=== PATIENT | female | born 1980 | race Caucasian/White ===

== ENCOUNTER 2019-09-02 14:12 | Outpatient (CLI) | payer OTHER, SELFPAY ==
--- NOTE | ~2019-09-02 | XR_ITS ---
EXAMINATION: XR chest 2V 09/02/2019 14:34 INDICATION: Cough with wheezing PROCEDURE: 2 view chest COMPARISON: 08/20/2012 FINDINGS: The lungs are clear. The cardiomediastinal silhouette is within normal limits. There are no pleural effusions. There is no pneumothorax suspected. IMPRESSION: 1: NO ACUTE CARDIOPULMONARY DISEASE. Reviewed, dictated and finalized at location A.
== END 2019-09-02 14:13 | disposition home or self-care (01) ==
PROVIDERS: PCP Internal Medicine; Visit Provider Clinical Nurse Specialist
DX: R05 Cough (principal); R06.2 Wheezing
CPT/HCPCS: 71046

== ENCOUNTER 2019-09-14 10:32 | Outpatient (CLI) | payer OTHER, SELFPAY ==
--- NOTE | 2019-09-15 13:01 | P.PCNPFT_ITS ---
PFT Interpretation PFT Interpretation: DOS: 09/14/2019 REQUESTING: Dr Adonis Pichardo REASON FOR TESTING: Shortness of breath PULMONARY FUNCTION TESTS results are reproducible. Spirometry: FEV1 is 82%, normal. FVC 89%, normal. FEV1% is 71%, normal. FEF25- 75% is 46%, decreased. There is no improvement after bronchodilator admi nistration. Lung volumes: TLC 108% normal.. Increased residual volume 137% consistent with mild air trapping. Airway resistance increased 193%. Diffusion: DLCO is 97%, normal. Flow volume loop: Mild coving of the expiratory limb. IMPRESSION: Obstructive process is present with a small airways pattern, mild air trapping and mild increase in airway resistance. No response to bronchodilator. Lack of response to bronchodilators should not preclude use if clinically indicated Manjula Christopher MD
== END 2019-09-14 10:33 | disposition home or self-care (01) ==
LOC: ANHPFT 10:33
PROVIDERS: PCP Internal Medicine; Visit Provider Internal Medicine
DX: R06.2 Wheezing (principal); R94.2 Abnormal results of pulmonary function studies
CPT/HCPCS: 94060; 94726; 94729

== ENCOUNTER 2020-11-09 08:04 | Outpatient (CLI) | payer BC, SELFPAY ==
--- NOTE | ~2020-11-09 | US_ITS ---
EXAMINATION: US right upper quadrant DATE: 11/09/2020 08:31 INDICATION: Gastroesophageal reflux disease TECHNIQUE: Multiple grayscale and Doppler ultrasound images of the abdomen were obtained. COMPARISON: 02/16/2011 FINDINGS: The head, body, and tail of the pancreas are normal. Cysts of the liver measure up to 1.6 c m The liver is otherwise normal with normal echogenicity and echotexture. No surface nodularity. Norm al hepatopetal flow in the main portal vein. The gallbladder is normal with no abnormal wall thickeni ng, pericholecystic fluid or stones. The normal common bile duct measures 3 mm. There was no sonograp hic Rodney sign. IMPRESSION: 1. Normal sonographic study of the gallbladder. Reviewed, dictated and finalized at location A.
== END 2020-11-09 08:05 | disposition home or self-care (01) ==
PROVIDERS: PCP Internal Medicine; Visit Provider Clinical Nurse Specialist
DX: K21.9 Gastro-esophageal reflux disease without esophagitis (principal); K76.89 Other specified diseases of liver
CPT/HCPCS: 76705

== ENCOUNTER → 2021-01-25 03:49 | Outpatient (CLI) | payer BC, SELFPAY ==
[2021-01-26 17:41] LABS: SARS-CoV-2 RNA PCR Negative
== END ==
PROVIDERS: PCP Internal Medicine; Visit Provider Internal Medicine
DX: R50.9 Fever, unspecified (principal); Z20.822 Contact with and (suspected) exposure to COVID-19
CPT/HCPCS: C9803; U0003; U0005

== ENCOUNTER 2021-01-25 09:31 | Outpatient (CLI) | payer BC, SELFPAY ==
[2021-01-25 11:17] LABS: Influenza Control Positive
== END 2021-01-25 09:32 | disposition home or self-care (01) ==
LOC: ANHLAB 09:34
PROVIDERS: PCP Internal Medicine; Visit Provider Internal Medicine
DX: R50.9 Fever, unspecified (principal)
CPT/HCPCS: 87804; C9803; U0003; U0005

== ENCOUNTER 2021-09-14 13:22 | Emergency (ER) | payer BC, SELFPAY ==
[2021-09-14] VITALS (24 sets, daily range): BP systolic 122–155; BP diastolic 69–129; PULSE 82–99; RESP 13–29; TEMP 36.6; O2SAT 95–100
--- NOTE | ~2021-09-14 | XR_ITS ---
EXAMINATION: XR chest 2V 09/14/2021 14:35 INDICATION: Shortness of breath. Chest pain. PROCEDURE: 2 view chest COMPARISON: 09/02/2019 FINDINGS: The lungs are clear. The cardiomediastinal silhouette is within normal limits. There are no pleural effusions. There is no pneumothorax suspected. IMPRESSION: 1: NO ACUTE CARDIOPULMONARY DISEASE. Reviewed, dictated and finalized at location B.
--- NOTE | 2021-09-14 13:44 | ECG_ITS ---
Measurements Intervals [place] Rate: 93 P: 74 LA: 134 QRS: 60 QRSD: 85 T: 15 QT: 365 QTc: 454 Interpretive Statements SINUS RHYTHM POSSIBLE LEFT ATRIAL ENLARGEMENT [-0.1mV P WAVE IN V1/V2] NONSPECIFIC T-WAVE ABNORMALITY NO PREVIOUS ECG AVAILABLE FOR COMPARISON Electronically Signed On 09-14-2021 20:37:24 CDT by Mayela Alvarado M.D.
[2021-09-14 14:21] LABS: Basophils Percent Auto 0.9 % (0.2-1.2); Eosinophils Absolute Auto 0.1 K/mm3 (0-0.3); Eosinophils Percent Auto 1.7 % (0-4.4); Hematocrit 34.2 % (37.0-47.0); Hemoglobin 10.5 g/dL (12.0-15.0); Immature Granulocyte Absolute 0.01 K/mm3 (0.00-0.031); Immature Granulocyte Percent A 0.3 % (0-0.5); Lymphocytes Absolute Auto 0.57 K/mm3 (0.9-3.2); Lymphocytes Percent Auto 16.2 % (18.3-44.2); Mean Corpuscular HGB Conc 30.7 g/dl (32-36); Mean Corpuscular Hemoglobin 25.1 pg (26-34); Mean Corpuscular Volume 81.6 fl (80-100); Mean Platelet Volume 9.1 fl (7.4-10.4); Monocytes Absolute Auto 0.3 K/mm3 (0.1-0.6); Monocytes Percent Auto 7.1 % (2.6-8.5); Neutrophils Absolute Auto 2.6 K/mm3 (1.3-6.7); Neutrophils Percent Auto 73.8 % (45.5-73.1); Platelet Count Result 117 k/mm3 (150-375); Red Blood Count 4.19 M/mm3 (4.2-5.4); Red Cell Distribution Width 17.9 % (11.5-14.5); White Blood Count 3.5 K/mm3 (4.5-10.0)
--- NOTE | 2021-09-14 14:40 | ED.ALCOHOL ---
HPI - Alcohol General Chief Complaint: Alcohol Stated Complaint: chest pain, anxiety Time Seen by Provider: 09/14/21 14:09 History of Present Illness HPI narrative: Pt admits to drinking 1/2 bottle of vodka a day for last moth or 8 [employer]. Pt has history of alcohol abuse and has been through rehab in the past and would like help. Pt drank this morning but feels like she is shaky and withdrawing. Pt has never had seizures. Pt also has had CP since 0700 yesterday. Pt says CP is constant since yesterday and waxes and wanes in severity. Related Data Home Medications Medication Instructions Recorded Confirmed esomeprazole magnesium 20 mg 20 mg PO DAILY 06/19/21 06/19/21 capsule,delayed release (Nexium) Allergies Allergy/AdvReac Type Severity Reaction Status Date / Time ciprofloxacin Allergy Mild NAUSEA Verified 05/28/19 09:24 Sulfa (Sulfonamide Allergy Mild Vomiting Verified 05/28/19 09:24 Antibiotics) Review of Systems Review of Systems: All systems reviewed & are unremarkable except as noted in HPI and below PMFSH Past Medical History Medical History Alcohol use disorder, moderate, dependence Anxiety and depression Chiari malformation type I High cholesterol Screening for metabolic disorder Family History Family History Father Diabetes mellitus Mother Hypertension Breast cancer Social History Social History Smoking status: Never smoker Alcohol intake: former Exam Const: General: healthy appearing Nutritional Appearance: well nourished Orientation/consciousness: patient oriented x3 Limitations: no limitations Eyes: Conjunctivae: conjunctivae normal EOM: EOMs intact bilaterally Neck: Neck: normal visual inspection Chest: Chest palpation & inspection: normal inspection of the chest Resp: Effort & Inspection: normal respiratory effort Auscultation: clear to auscultation bilaterally Cardio: Rate: regular rate Rhythm: regular rhythm GI: GI Palp: Yes Soft to palpation Auscultation: normal bowel sounds Skin: General skin exam: normal color Rashes: no rashes Wounds: no wounds Neuro: General: patient oriented x3 Cranial nerves: Yes Nystagmus not present Speech: normal speech Extrem: General: normal to inspection and no clubbing, cyanosis or edema Psych: Mental Status: mental status grossly normal Affect: Anxious affect present (shaking slightly) Attitude: cooperative Course Vital Signs Vital signs: Vital Signs Temperature 97.8 F 09/14/21 13:41 Pulse Rate 94 09/14/21 13:41 Respiratory Rate 18 09/14/21 13:41 Blood Pressure 149/86 H 09/14/21 13:41 Pulse Oximetry 99 09/14/21 13:41 Oxygen Delivery Room Air 09/14/21 13:41 Temperature 97.8 F 09/14/21 13:41 Pulse Rate 99 09/14/21 20:06 Respiratory Rate 20 09/14/21 20:06 Blood Pressure 150/129 H 09/14/21 20:06 Pulse Oximetry 100 09/14/21 20:06 Oxygen Delivery Room Air 09/14/21 13:41 MDM - Alcohol Lab Data Result diagrams: 09/14/21 14:16 09/14/21 14:16 Labs: Lab Results 09/14/21 09/14/21 09/14/21 Range/Units 06:09 06:09 14:16 WBC 3.5 L (4.5-10.0) K/mm3 RBC 4.19 L (4.2-5.4) M/mm3 Hgb 10.5 L (12.0-15.0) g/dL Hct 34.2 L (37.0-47.0) % MCV 81.6 (80-100) fl MCH 25.1 L (26-34) pg MCHC 30.7 L (32-36) g/dl RDW 17.9 H (11.5-14.5) % Plt Count 117 L (150-375) k/mm3 MPV 9.1 (7.4-10.4) fl Immature Gran % (Auto) 0.3 (0-0.5) % Neut % (Auto) 73.8 H (45.5-73.1) % Lymph % (Auto) 16.2 L (18.3-44.2) % [place] % (Auto) 7.1 (2.6-8.5) % Eos % (Auto) 1.7 (0-4.4) % Baso % (Auto) 0.9 (0.2-1.2) % Lymph # (Auto) 0.57 L (0.9-3.2) K/mm3 [place] # (Auto) 0.3 (0.1-0.6) K/mm3 Eos # (Auto) 0.1 (0-0.3) K/mm3 Baso #
[2021-09-14 14:41] LABS: Alanine Aminotransferase 185 U/L (6-35); Albumin Level 4.5 g/dL (3.5-5.1); Alkaline Phosphatase 121 U/L (38-126); Anion Gap 13 mmol/L (8-16); Aspartate Amino Transferase 396 U/L (14-36); Bilirubin,Total 0.2 mg/dL (0.2-1.3); Blood Urea Nitrogen 7 mg/dL (7-17); Calcium 8.2 mg/dL (8.4-10.2); Carbon Dioxide 23 mmol/L (22-30); Chloride 103 mmol/L (98-107); Estimated CRCL calculation 86 ml/min; Estimated Glomerular Filt Rate > 60; Glucose 95 mg/dL (65-110); Potassium 3.6 mmol/L (3.4-5.0); Sodium 139 mmol/L (137-145)
[2021-09-14] MEDS: LORazepam INJ (*CRX) 2 MG/ML VIAL 1 MG IV PUSH ×3 (15:34→19:55)
[2021-09-14] MEDS: THIAMINE HCL INJ 100 MG, FOLIC ACID INJ 1 MG, MULTIVITAMINS-12 INJ VIAL 1 5 ML, MULTIVI... IV CONT (15:46)
[2021-09-14 15:48] LABS: Ethanol 103 mg/dL (<10)
[2021-09-14 15:56] LABS: Troponin I < 0.012 ng/mL (0.000-0.034)
[2021-09-14 18:02] LABS: Ethanol 25 mg/dL (<10)
== END 2021-09-14 20:05 | disposition home or self-care (01) ==
PROVIDERS: Emergency Medicine; Emergency Provider Emergency Medicine; PCP Internal Medicine
DX: F10.10 Alcohol abuse, uncomplicated (principal); Y90.9 Presence of alcohol in blood, level not specified
CPT/HCPCS: 36415; 71046; 80053; 80307; 84484; 85025; 93005; 96365; 96366; 96375; 96376; 99284; J2060; J3411; J3475; J7030

== ENCOUNTER 2022-02-10 17:18 | Inpatient (IN) | payer BC, SELFPAY ==
[2022-02-10] VITALS (17 sets, daily range): BP systolic 124–146; BP diastolic 63–85; PULSE 83–110; RESP 16–21; TEMP 36.2–36.7; O2SAT 94–100
[2022-02-10 17:45] LABS: Basophils Percent Auto 0.7 % (0.2-1.2); Eosinophils Absolute Auto 0.1 K/mm3 (0-0.3); Eosinophils Percent Auto 2.1 % (0-4.4); Hematocrit 35.9 % (37.0-47.0); Immature Granulocyte Absolute 0.01 K/mm3 (0.00-0.031); Immature Granulocyte Percent A 0.2 % (0-0.5); Lymphocytes Absolute Auto 1.37 K/mm3 (0.9-3.2); Lymphocytes Percent Auto 23.9 % (18.3-44.2); Mean Corpuscular HGB Conc 30.6 g/dl (32-36); Mean Corpuscular Hemoglobin 23.3 pg (26-34); Mean Corpuscular Volume 76.1 fl (80-100); Mean Platelet Volume 8.3 fl (7.4-10.4); Monocytes Absolute Auto 0.3 K/mm3 (0.1-0.6); Monocytes Percent Auto 5.2 % (2.6-8.5); Neutrophils Absolute Auto 3.9 K/mm3 (1.3-6.7); Neutrophils Percent Auto 67.9 % (45.5-73.1); Platelet Count Result 325 k/mm3 (150-375); Red Blood Count 4.72 M/mm3 (4.2-5.4); Red Cell Distribution Width 17.5 % (11.5-14.5); White Blood Count 5.7 K/mm3 (4.5-10.0)
[2022-02-10 17:56] LABS: Ethanol 267 mg/dL (<10)
[2022-02-10 18:04] LABS: Alanine Aminotransferase 29 U/L (6-35); Albumin Level 4.8 g/dL (3.5-5.1); Alkaline Phosphatase 82 U/L (38-126); Anion Gap 16 mmol/L (8-16); Aspartate Amino Transferase 40 U/L (14-36); Bilirubin,Total 0.4 mg/dL (0.2-1.3); Blood Urea Nitrogen 9 mg/dL (7-17); Calcium 8.4 mg/dL (8.4-10.2); Carbon Dioxide 25 mmol/L (22-30); Chloride 104 mmol/L (98-107); Estimated CRCL calculation 96 ml/min; Estimated Glomerular Filt Rate > 60; Glucose 132 mg/dL (65-110); Potassium 3.5 mmol/L (3.4-5.0); Sodium 145 mmol/L (137-145)
--- NOTE | 2022-02-10 18:26 | ED.ALCOHOL ---
HPI - Alcohol General Chief Complaint: Alcohol Stated Complaint: ALCOHOL WITHDRAWALS Time Seen by Provider: 02/10/22 18:14 History of Present Illness HPI narrative: Patient is a 41-year-old female with a history of depression, anxiety, alcohol use disorder presenting for alcohol withdrawal. According to the patient's brother the patient was in a rehab facility several weeks ago but then signed her self out after several days. She then went to a boyfriend's house and has been drinking every day for at least the last 2 weeks. He states that at least 8 empty bottles of vodka were found at the boyfriend's house. She was then kicked out of the boyfriend's house today as he is trying to maintain his sobriety. Patient's brother called her primary care provider who agreed with bringing her in for admission for alcohol detox. Multiple family members are calling rehab facilities in the area to find availability. Currently, the patient complains of a mild headache but otherwise denies chest pain, shortness of breath, cough, abdominal pain, nausea or vomiting, diarrhea. States her last drink was approximately 3 hours ago. Related Data Home Medications Medication Instructions Recorded Confirmed esomeprazole magnesium 20 mg 20 mg PO DAILY 06/19/21 02/10/22 capsule,delayed release (Nexium) gabapentin 300 mg capsule 600 mg PO TID 02/10/22 02/10/22 trazodone 50 mg tablet 50 mg PO HS 02/10/22 02/10/22 Allergies Allergy/AdvReac Type Severity Reaction Status Date / Time ciprofloxacin Allergy Mild NAUSEA Verified 02/10/22 18:07 Sulfa (Sulfonamide Allergy Mild Vomiting Verified 02/10/22 18:07 Antibiotics) Review of Systems Review of Systems: All systems reviewed & are unremarkable except as noted in HPI and below PMFSH Past Medical History Medical History (Updated 02/11/22 @ 20:44 by Holly Cruz MD) Alcohol use disorder, moderate, dependence Anxiety and depression Chiari malformation type I High cholesterol Screening for metabolic disorder Family History Family History Father Diabetes mellitus Mother Hypertension Breast cancer Social History Social History Smoking status: Current every day smoker Tobacco type: e-cigarettes/vaping Alcohol intake: current Drinks per week: 7 Substance use: never Spiritual care concerns: No Exam Narrative: GENERAL: Appears very anxious, fidgety, tremulous HEAD: Normocephalic, atraumatic. EYES: PERRLA and EOMI. ENT: Nares clear, no rhinorrhea or epistaxis. Mucous membranes moist. NECK: Supple. CHEST: Clear to auscultation. No respiratory distress. HEART: Regular rate and rhythm. No murmur heard. Normal peripheral pulses. ABDOMEN: Soft, nontender, nondistended, normal active bowel sounds. EXTREMITIES: Normal range of motion. No edema. SKIN: Warm, dry, no rash. NEURO: No focal deficits. Alert and oriented x3. Course Vital Signs Vital signs: Vital Signs Temperature 98.1 F 02/10/22 17:24 Pulse Rate 110 H 02/10/22 17:24 Respiratory Rate 21 H 02/10/22 17:24 Blood Pressure 146/77 H 02/10/22 17:24 Pulse Oximetry 97 02/10/22 17:24 Oxygen Delivery Room Air 02/10/22 17:24 Temperature 99.0 F 02/11/22 14:31 Pulse Rate 120 H 02/11/22 16:00 Respiratory Rate 16 02/11/22 14:31 Blood Pressure 145/73 H 02/11/22 14:31 Pulse Oximetry 99 02/11/22 14:31 Oxygen Delivery Room Air 02/11/22 08:31 MDM - Alcohol MDM Narrative Medical decision making narrative: Patient is a 41-year-old female presenting with alcohol withdrawal. On arrival, patient is tachycardic and hypertensive. She does appear tremulous and very anxious on exam. CIWA protocol was initiated. She does endorse several episodes of alcohol withdrawal in the past. Blood work is remarkable for an elevated ethanol level. The remainder of her blood work is u
[2022-02-10 18:34] LABS: Thyroid Stimulating Hormone 0.547 uIU/mL (0.465-4.680)
[2022-02-10] MEDS: LORazepam INJ (*CRX) 2 MG/ML VIAL IV PUSH ×2 (19:09→23:36)
[2022-02-10] MEDS: NICOTINE (*PBKC) 21 MG PATCH 1 PATCH TRANSDERM (19:09)
[2022-02-10] MEDS: THIAMINE HCL INJ 100 MG, FOLIC ACID INJ 1 MG, MULTIVITAMINS-12 INJ VIAL 1 5 ML, MULTIVI... 125 MG IV CONT (19:10)
[2022-02-10 19:23] LABS: Appearance Urine Clear (Clear); Bilirubin Urine Negative (Negative); Blood Urine Negative (Negative); Color Urine Yellow (Yellow); Glucose Urine UA Negative (Negative); Ketones Urine Negative (Negative); Leukocyte Esterase Ur 2+ LEU/UL (Negative); Nitrate Urine Negative (Negative); Protein Urine Negative (Negative); pH Urine 6.5 (5.0-9.0)
[2022-02-10 19:29] LABS: RBC Urine 0-2 /hpf (0-2); Squamous Epithelial Cell Urine Rare /hpf (Few); WBC Urine 0-3 /hpf
[2022-02-10 19:30] LABS: Amphetamine Screen Urine Negative (Negative); Barbiturate Screen Urine Negative (Negative); Benzodiazepines Screen Urine Positive (Negative); Cannabinoid Screen Urine Negative (Negative); Cocaine Screen Urine Negative (Negative); Methadone Screen Urine Negative (Negative); Opiate Screen Urine Negative (Negative); Phencyclidine Screen Urine Negative (Negative)
[2022-02-10 19:33] LABS: Add Urine Microscopic? YES
[2022-02-10 19:37] LABS: Pregnancy On Board Control Positive; Urine Pregnancy Test Negative
--- NOTE | 2022-02-10 20:38 | PM.IMHP ---
H&P: HPI History of Present Illness Date/Time: 02/10/22 20:38 Chief Complaint: alcohol withdrawal Narrative: This is a 41-year-old female with past medical history significant for alcohol dependence patient presents to the emergency room after drinking in daily for several weeks and had a break-up with her ex-boyfriend who is a recovering alcoholic. Patient presents to the emergency room with tremors. Denies any fevers, chills, rigors, no nausea, no vomiting. She has frontal headache, no vision changes. Preliminary workup has been essentially nonrevealing she had a high CIWA score. patient has been admitted for further evaluation, management and treatment Review of Systems Review of Systems: tremors, daily alcohol intake for several weeks. Constitutional: Constitutional: Denies chills, Denies fever(s), Denies malaise, Denies night sweats and Denies weakness Eyes: Eyes: Denies change in vision ENT: Denies dysphagia, Denies vertigo, Denies dizziness and Denies odynophagia Cardiovascular: Cardiovascular: Denies chest pain and Denies leg edema Respiratory: Respiratory: Denies cough Gastrointestinal: Gastrointestinal: Denies abdominal pain, Denies diarrhea, Denies nausea and Denies vomiting Genitourinary: Genitourinary: Denies dysuria Musculoskeletal: Musculoskeletal: Denies myalgias Integumentary/Breasts: Skin/Breast: Denies rash Psychiatric: Psychiatric: Reports no additional psychiatric complaints and Reports as per HPI Endocrine: Endocrine: Denies cold intolerance, Denies flushing, Denies heat intolerance, Denies polyphagia, Denies polydipsia and Denies palpitations Hematologic/Lymphatic: Hematologic/Lymphatic: Reports no additional hematologic/lymphatic complaints and Reports as per HPI Allergic/Immunologic: Allergic/Immunologic: Reports no additional allergic/immunologic complaints and Reports as per HPI PMFSH Past Medical History Medical History (Updated 02/11/22 @ 03:27 by Sinai Quan MD) Alcohol use disorder, moderate, dependence Anxiety and depression Chiari malformation type I High cholesterol Screening for metabolic disorder Family History Family History Father Diabetes mellitus Mother Hypertension Breast cancer Social History Social History Smoking status: Current every day smoker Tobacco type: e-cigarettes/vaping Alcohol intake: current Drinks per week: 7 Substance use: never Spiritual care concerns: No Meds Home Medications and Allergies Home Medications Medication Instructions Recorded Confirmed Type albuterol sulfate 90 mcg/actuation See Rx Instructions .Route 01/15/20 02/10/22 Rx aerosol inhaler .COMPLEX #8.5 grams budesonide-formoterol HFA 80 See Rx Instructions .Route 01/15/20 02/10/22 Rx mcg-4.5 mcg/actuation aerosol .COMPLEX #10.2 grams inhaler bupropion HCl 150 mg 24 hr tablet, 150 mg PO QAM #90 tabs 06/19/21 02/10/22 Rx extended release esomeprazole magnesium 20 mg 20 mg PO DAILY 06/19/21 02/10/22 History capsule,delayed release (Nexium) gabapentin 300 mg capsule 600 mg PO TID 02/10/22 02/10/22 History trazodone 50 mg tablet 50 mg PO HS 02/10/22 02/10/22 History Allergies Allergy/AdvReac Type Severity Reaction Status Date / Time ciprofloxacin Allergy Mild NAUSEA Verified 02/10/22 18:07 Sulfa (Sulfonamide Allergy Mild Vomiting Verified 02/10/22 18:07 Antibiotics) Vital Signs Vital Signs - 24 hr 02/10/22 17:24 02/10/22 19:19 Temperature 98.1 F Pulse Rate 110 H 84 Respiratory Rate 21 H 20 Blood Pressure 146/77 H 143/63 H Pulse Oximetry 97 98 Oxygen Delivery Room Air Exam Narrative: patient is laying in a stretcher Const: General: comfortable, no acute distress, well developed, alert, awake and average body habitus Nutritional Appearance: average body habitus Orientation/consciousness:
[2022-02-10 21:38] LABS: SARS-CoV-2 RNA PCR Negative
--- NOTE | 2022-02-10 22:11 | PC.NURSE ---
Patient continues to remove her BP cuff, pulse ox, and heart monitor.
[2022-02-11] VITALS (13 sets, daily range): BP systolic 136–145; BP diastolic 73–74; PULSE 70–120; RESP 14–16; TEMP 36.5–37.2; O2SAT 96–99
--- NOTE | 2022-02-11 01:13 | PC.NURSE ---
Daylight Savings Time For Daylight Savings Time Ending in the Fall - Clocks are moved back. For Daylight Savings Time Beginning in the Spring - Clocks are moved ahead. For [facility], the time of change occurs at 0200 hrs. Time is taken from the cocktail server. This entry on the patient's chart recognizes the change in time reflected during documentation. Example: 2 entries for vital signs may be charted for 0200 hrs.
[2022-02-11] MEDS: ACETAMINOPHEN 500 MG TABLET 1000 MG PO (02:31)
[2022-02-11] MEDS: traZODone HCL 50 MG TABLET PO ×2 (02:32→22:36)
[2022-02-11] MEDS: FLUTICASONE/SALMETEROL 45-21 MCG INHALER 1 PUFF 2 PUFF INHALATION (08:31)
[2022-02-11] MEDS: PANTOPRAZOLE 40 MG TABLET PO (10:00)
[2022-02-11] MEDS: ENOXAPARIN 40 MG/0.4 ML SYRINGE SUB-Q (10:00)
[2022-02-11] MEDS: buPROPion HCL XL (24 HR) 150 MG TABCR PO (10:00)
[2022-02-11] MEDS: GABAPENTIN 300 MG CAPSULE 600 MG PO ×3 (10:01→16:38)
[2022-02-11] MEDS: chlordiazePOXIDE (*CRX) 25 MG CAPSULE 50 MG PO ×2 (10:08→16:37)
[2022-02-11] MEDS: LORazepam INJ (*CRX) 2 MG/ML VIAL IV PUSH ×4 (11:08→22:36)
--- NOTE | 2022-02-11 11:12 | PM.IMPN ---
Progress Note: A&P Assessment and Plan (1) Alcohol withdrawal: Code(s): F10.939 - Alcohol use, unspecified with withdrawal, unspecified Status: Acute Assessment and Plan: admit to med tele CILA protocol as needed supportive care (2) Alcohol use disorder, moderate, dependence: Code(s): F10.20 - Alcohol dependence, uncomplicated Status: Acute Assessment and Plan: patient is seeking out rehabilitation (3) Anxiety and depression: Code(s): F41.9 - Anxiety disorder, unspecified; F32.9 - Major depressive disorder, single episode, unspecified Status: Acute Assessment and Plan: continue home meds (4) GERD without esophagitis: Code(s): K21.9 - Gastro-esophageal reflux disease without esophagitis Status: Acute Assessment and Plan: continue PPI (5) Chiari malformation type I: Code(s): G93.5 - Compression of brain Status: Acute Assessment and Plan: unchanged Subjective Date/time seen: 02/11/22 11:12 no new complaints Exam Const: General: comfortable, no acute distress, well developed, alert, awake and average body habitus Nutritional Appearance: average body habitus Orientation/consciousness: patient oriented x3 HENMT: Head: normal to inspection, normocephalic and atraumatic Ears: hearing grossly normal bilaterally Face/Nose/Sinus: normal facial exam Face and sinus: normal facial exam Eyes: General: appearance normal, both eyes and all related structures Pupils: Equal, round and reactive pupils present EOM: EOMs intact bilaterally Neck: Neck: full ROM, no lymphadenopathy and no JVD Thyroid: thyroid normal Lymphatic: no lymphadenopathy noted Resp: Effort & Inspection: normal respiratory effort and able to speak in complete sentences Auscultation: clear to auscultation bilaterally Cardio: Jugular venous distension: no JVD Rate: regular rate Rhythm: regular rhythm Heart sounds: S1 normal heart sound present and S2 normal heart sound present : General: Yes deferred Skin: Rashes: no rashes Wounds: no wounds Neuro: General: patient oriented x3, CN's II-XI intact bilaterally and Unable to assess gait Cranial nerves: Yes CN's II-XII intact bilaterally and Yes Equal, round and reactive pupils present Cognition (Neuro): normal cognition Speech: normal speech Gait exam (Neuro): Unable to assess gait Motor exam (neuro): 5/5 motor strength present throughout and Tremors during motor activity present Extrem: General: normal to inspection, full ROM, no joint enlargement and no pedal edema Objective Data Vital Signs Vital Signs: Vital Signs - 24 hr 02/10/22 17:24 02/10/22 19:19 02/10/22 18:10 Temperature 98.1 F Pulse Rate 110 H 84 90 Pulse Rate [Monitor] Respiratory Rate 21 H 20 17 Blood Pressure 146/77 H 143/63 H 132/71 Pulse Oximetry 97 98 Oxygen Delivery Room Air 02/10/22 18:30 02/10/22 18:31 02/10/22 18:46 Temperature Pulse Rate 83 83 85 Pulse Rate [Monitor] Respiratory Rate 17 19 16 Blood Pressure 126/82 Pulse Oximetry 98 97 100 Oxygen Delivery 02/10/22 19:15 02/10/22 19:30 02/10/22 19:55 Temperature Pulse Rate 83 91 Pulse Rate [Monitor] Respiratory Rate 19 16 Blood Pressure Pulse Oximetry 94 99 100 Oxygen Delivery 02/10/22 20:00 02/10/22 20:15 02/10/22 20:30 Temperature Pulse Rate Pulse Rate [Monitor] Respiratory Rate Blood Pressure Pulse Oximetry 100 98 98 Oxygen Delivery 02/10/22 21:08 02/10/22 21:15 02/10/22 21:55 Temperature Pulse Rate Pulse Rate [Monitor] Respiratory Rate Blood Pressure Pulse Oximetry 98 100 96 Oxygen Delivery 02/10/22 21:58 02/10/22 20:00 02/10/22 23:42 Temperature 97.1 F L Pulse Rate 84 Pulse Rate [Monitor] 97 Respiratory Rate 16 Blood Pressure 124/85 141/79 H Pulse Oximetry 98 98 Oxygen Delivery 02/11/22 00:00 02/11/22 00:00 02/11/22 04:00 Tem
[2022-02-11 12:06] LABS: Glucose Point of Care 97 mg/dl (65-105)
[2022-02-11] MEDS: IBUPROFEN 600 MG TABLET PO (15:19)
[2022-02-11 18:06] LABS: Glucose Point of Care 145 mg/dl (65-105)
[2022-02-11] MEDS: NICOTINE (*PBKC) 21 MG PATCH 1 PATCH TRANSDERM (22:36)
[2022-02-12] VITALS (13 sets, daily range): BP systolic 124–133; BP diastolic 70–88; PULSE 72–93; RESP 16–17; TEMP 36.3–36.9; O2SAT 97–100
[2022-02-12] MEDS: LORazepam INJ (*CRX) 2 MG/ML VIAL IV PUSH ×3 (07:36→17:26)
[2022-02-12] MEDS: FLUTICASONE/SALMETEROL 45-21 MCG INHALER 1 PUFF 2 PUFF INHALATION ×2 (08:15→20:29)
[2022-02-12 08:29] LABS: Glucose Point of Care 135 mg/dl (65-105)
[2022-02-12] MEDS: chlordiazePOXIDE (*CRX) 25 MG CAPSULE 50 MG PO ×3 (08:54→21:24)
[2022-02-12] MEDS: PANTOPRAZOLE 40 MG TABLET PO (08:55)
[2022-02-12] MEDS: buPROPion HCL XL (24 HR) 150 MG TABCR PO (08:55)
[2022-02-12] MEDS: ENOXAPARIN 40 MG/0.4 ML SYRINGE SUB-Q (08:55)
[2022-02-12] MEDS: GABAPENTIN 300 MG CAPSULE 600 MG PO ×3 (08:55→17:19)
[2022-02-12 09:07] LABS: Appearance Urine Clear (Clear); Bilirubin Urine Negative (Negative); Blood Urine Negative (Negative); Color Urine Light Yellow (Yellow); Glucose Urine UA Negative (Negative); Ketones Urine Negative (Negative); Leukocyte Esterase Ur Trace LEU/UL (Negative); Nitrate Urine Negative (Negative); Protein Urine Negative (Negative); Urobilinogen Urine 0.2 mg/dL (<2.0)
[2022-02-12 09:25] LABS: Bacteria Urine Trace /hpf; RBC Urine 0-2 /hpf (0-2); Squamous Epithelial Cell Urine Few /hpf (Few); WBC Urine 0-3 /hpf
[2022-02-12 09:52] LABS: Add Urine Microscopic? YES
--- NOTE | 2022-02-12 11:12 | PM.IMPN ---
Progress Note: A&P Assessment and Plan (1) Alcohol withdrawal: Code(s): F10.939 - Alcohol use, unspecified with withdrawal, unspecified Status: Acute Assessment and Plan: admit to med tele CINJ protocol as needed supportive care (2) Alcohol use disorder, moderate, dependence: Code(s): F10.20 - Alcohol dependence, uncomplicated Status: Acute Assessment and Plan: patient is seeking out rehabilitation (3) Anxiety and depression: Code(s): F41.9 - Anxiety disorder, unspecified; F32.9 - Major depressive disorder, single episode, unspecified Status: Acute Assessment and Plan: continue home meds (4) GERD without esophagitis: Code(s): K21.9 - Gastro-esophageal reflux disease without esophagitis Status: Acute Assessment and Plan: continue PPI (5) Chiari malformation type I: Code(s): G93.5 - Compression of brain Status: Acute Assessment and Plan: unchanged Subjective Date/time seen: 02/12/22 11:12 No complaints Exam Narrative: patient is laying in a stretcher Const: General: comfortable, no acute distress, well developed, alert, awake and average body habitus Nutritional Appearance: average body habitus Orientation/consciousness: patient oriented x3 HENMT: Head: normal to inspection, normocephalic and atraumatic Ears: hearing grossly normal bilaterally Face/Nose/Sinus: normal facial exam Face and sinus: normal facial exam Eyes: General: appearance normal, both eyes and all related structures Pupils: Equal, round and reactive pupils present EOM: EOMs intact bilaterally Neck: Neck: full ROM, no lymphadenopathy and no JVD Thyroid: thyroid normal Lymphatic: no lymphadenopathy noted Resp: Effort & Inspection: normal respiratory effort and able to speak in complete sentences Auscultation: clear to auscultation bilaterally Cardio: Jugular venous distension: no JVD Rate: regular rate Rhythm: regular rhythm Heart sounds: S1 normal heart sound present and S2 normal heart sound present : General: Yes deferred Skin: Rashes: no rashes Wounds: no wounds Neuro: General: patient oriented x3, CN's II-XI intact bilaterally and Unable to assess gait Cranial nerves: Yes CN's II-XII intact bilaterally and Yes Equal, round and reactive pupils present Cognition (Neuro): normal cognition Speech: normal speech Gait exam (Neuro): Unable to assess gait Motor exam (neuro): 08/10 motor strength present throughout and Tremors during motor activity present Extrem: General: normal to inspection, full ROM, no joint enlargement and no pedal edema Objective Data Vital Signs Vital Signs: Vital Signs - 24 hr 02/11/22 11:14 02/11/22 13:53 02/11/22 14:31 Temperature 99.0 F Pulse Rate 91 Pulse Rate [Monitor] 90 90 Respiratory Rate 16 Blood Pressure 145/73 H Pulse Oximetry 99 Oxygen Delivery 02/11/22 12:00 02/11/22 16:00 02/11/22 16:00 Temperature Pulse Rate 80 90 Pulse Rate [Monitor] 120 H Respiratory Rate Blood Pressure Pulse Oximetry Oxygen Delivery 02/11/22 20:00 02/11/22 20:00 02/11/22 22:00 Temperature Pulse Rate 74 Pulse Rate [Monitor] 74 87 Respiratory Rate Blood Pressure Pulse Oximetry Oxygen Delivery 02/12/22 00:00 02/12/22 00:00 02/12/22 04:00 Temperature Pulse Rate 76 72 Pulse Rate [Monitor] 76 Respiratory Rate Blood Pressure Pulse Oximetry Oxygen Delivery 02/12/22 04:00 02/12/22 06:00 02/12/22 07:29 Temperature 97.3 F L Pulse Rate 78 Pulse Rate [Monitor] 72 92 Respiratory Rate 17 Blood Pressure 124/88 Pulse Oximetry 99 Oxygen Delivery 02/12/22 08:17 02/12/22 08:00 Temperature Pulse Rate 90 Pulse Rate [Monitor] Respiratory Rate Blood Pressure Pulse Oximetry 97 Oxygen Delivery Room Air Intake/Output Intake/Output: Intake & Output 02/10/22 02/11/22 02/11/22 02/12/22 0
[2022-02-12 11:48] LABS: Glucose Point of Care 129 mg/dl (65-105)
[2022-02-12] MEDS: IBUPROFEN 600 MG TABLET PO (17:26)
[2022-02-12 17:32] LABS: Glucose Point of Care 113 mg/dl (65-105)
[2022-02-12] MEDS: traZODone HCL 50 MG TABLET PO (21:27)
[2022-02-12] MEDS: NICOTINE (*PBKC) 21 MG PATCH 1 PATCH TRANSDERM (21:27)
[2022-02-13] VITALS (9 sets, daily range): BP systolic 121–137; BP diastolic 60–73; PULSE 76–97; RESP 14–20; TEMP 35.9–36.7; O2SAT 97–100
[2022-02-13] MEDS: IBUPROFEN 600 MG TABLET PO ×2 (03:10→20:01)
[2022-02-13 07:43] LABS: Glucose Point of Care 106 mg/dl (65-105)
[2022-02-13] MEDS: buPROPion HCL XL (24 HR) 150 MG TABCR PO (09:01)
[2022-02-13] MEDS: PANTOPRAZOLE 40 MG TABLET PO (09:01)
[2022-02-13] MEDS: GABAPENTIN 300 MG CAPSULE 600 MG PO ×2 (09:01→17:25)
[2022-02-13] MEDS: LORazepam INJ (*CRX) 2 MG/ML VIAL IV PUSH (09:08)
[2022-02-13] MEDS: FLUTICASONE/SALMETEROL 45-21 MCG INHALER 1 PUFF 2 PUFF INHALATION (10:07)
[2022-02-13] MEDS: chlordiazePOXIDE (*CRX) 25 MG CAPSULE 100 MG PO ×2 (10:33→20:06)
[2022-02-13] MEDS: hydrOXYzine HCL 25 MG TABLET 50 MG PO ×2 (10:33→20:11)
--- NOTE | 2022-02-13 10:49 | PM.IMPN ---
Progress Note: A&P Assessment and Plan (1) Alcohol withdrawal: Code(s): F10.939 - Alcohol use, unspecified with withdrawal, unspecified Status: Acute Assessment and Plan: admit to med [facility] protocol as needed supportive care patient did require IV Ativan this morning. Having some anxiety, will add hydroxyzine (2) Alcohol use disorder, moderate, dependence: Code(s): F10.20 - Alcohol dependence, uncomplicated Status: Acute Assessment and Plan: patient is seeking out rehabilitation (3) Anxiety and depression: Code(s): F41.9 - Anxiety disorder, unspecified; F32.9 - Major depressive disorder, single episode, unspecified Status: Acute Assessment and Plan: continue home meds (4) GERD without esophagitis: Code(s): K21.9 - Gastro-esophageal reflux disease without esophagitis Status: Acute Assessment and Plan: continue PPI (5) Chiari malformation type I: Code(s): G93.5 - Compression of brain Status: Acute Assessment and Plan: unchanged Subjective Date/time seen: 02/13/22 10:49 still having some anxiety and jitteriness. Did receive IV Ativan this morning Exam Const: General: comfortable, no acute distress, well developed, alert, awake and average body habitus Nutritional Appearance: average body habitus Orientation/consciousness: patient oriented x3 HENMT: Head: normal to inspection, normocephalic and atraumatic Ears: hearing grossly normal bilaterally Face/Nose/Sinus: normal facial exam Face and sinus: normal facial exam Eyes: General: appearance normal, both eyes and all related structures Pupils: Equal, round and reactive pupils present EOM: EOMs intact bilaterally Neck: Neck: full ROM, no lymphadenopathy and no JVD Thyroid: thyroid normal Lymphatic: no lymphadenopathy noted Resp: Effort & Inspection: normal respiratory effort and able to speak in complete sentences Auscultation: clear to auscultation bilaterally Cardio: Jugular venous distension: no JVD Rate: regular rate Rhythm: regular rhythm Heart sounds: S1 normal heart sound present and S2 normal heart sound present : General: Yes deferred Skin: Rashes: no rashes Wounds: no wounds Neuro: General: patient oriented x3, CN's II-XI intact bilaterally and Unable to assess gait Cranial nerves: Yes CN's II-XII intact bilaterally and Yes Equal, round and reactive pupils present Cognition (Neuro): normal cognition Speech: normal speech Gait exam (Neuro): Unable to assess gait Motor exam (neuro): 5/5 motor strength present throughout and Tremors during motor activity present Extrem: General: normal to inspection, full ROM, no joint enlargement and no pedal edema Objective Data Vital Signs Vital Signs: Vital Signs - 24 hr 02/12/22 12:00 02/12/22 12:00 02/12/22 14:00 Temperature 98 F Pulse Rate 90 92 Pulse Rate [Monitor] 89 Respiratory Rate 16 Blood Pressure 132/77 Pulse Oximetry 98 Oxygen Delivery 02/12/22 16:00 02/12/22 17:21 02/12/22 20:32 Temperature Pulse Rate 80 Pulse Rate [Monitor] 93 Respiratory Rate Blood Pressure Pulse Oximetry 100 Oxygen Delivery Room Air 02/12/22 21:47 02/12/22 20:00 02/12/22 20:00 Temperature 98.4 F Pulse Rate 85 Pulse Rate [Monitor] 86 Respiratory Rate 16 Blood Pressure 133/70 Pulse Oximetry 100 100 Oxygen Delivery Room Air 02/13/22 00:00 02/13/22 03:11 02/13/22 06:00 Temperature 98.0 F Pulse Rate 80 Pulse Rate [Monitor] 76 82 Respiratory Rate 14 Blood Pressure 121/60 Pulse Oximetry 98 Oxygen Delivery 02/13/22 08:00 02/13/22 10:09 Temperature Pulse Rate Pulse Rate [Monitor] 84 Respiratory Rate Blood Pressure Pulse Oximetry 99 Oxygen Delivery Room Air Intake/Output Intake/Output: Intake & Output 02/11/22 02/11/22 02/12/22 02/13/22 00:59 23:59 23:59 23:59 Intake Total 2180 740 Output [place]
--- NOTE | 2022-02-13 11:07 | PC.NURSE ---
Spoke with MD after assessing the patient and prior to him assessing the patient. Patient anxious and having some tremors. Patient requesting Ativan. CIWA score was 4. Ativan administered. MD changed patient's medications. Continue to monitor, call if needed.
[2022-02-13 11:27] LABS: Glucose Point of Care 117 mg/dl (65-105)
[2022-02-13] MEDS: NICOTINE (*PBKC) 21 MG PATCH 1 PATCH TRANSDERM (20:11)
[2022-02-13] MEDS: traZODone HCL 50 MG TABLET PO (20:11)
--- NOTE | 2022-02-13 23:01 | PCRCNOTE ---
Window of time for administration has passed. See next scheduled administration.
[2022-02-14] VITALS (8 sets, daily range): BP systolic 102–119; BP diastolic 51–65; PULSE 80–85; RESP 14–20; TEMP 36.4–36.6; O2SAT 96–100
[2022-02-14 06:17] LABS: Glucose Point of Care 128 mg/dl (65-105)
[2022-02-14] MEDS: chlordiazePOXIDE (*CRX) 25 MG CAPSULE 100 MG PO (06:57)
[2022-02-14] MEDS: hydrOXYzine HCL 25 MG TABLET 50 MG PO ×2 (06:57→19:36)
--- NOTE | 2022-02-14 07:43 | PM.IMPN ---
Progress Note: A&P Assessment and Plan (1) Alcohol withdrawal: Code(s): F10.939 - Alcohol use, unspecified with withdrawal, unspecified Status: Acute Assessment and Plan: CIWA score down to 0, will decrease Librium and reassess, anticipate discharge tomorrow (2) Alcohol use disorder, moderate, dependence: Code(s): F10.20 - Alcohol dependence, uncomplicated Status: Acute Assessment and Plan: appreciate care coordination consultation (3) Anxiety and depression: Code(s): F41.9 - Anxiety disorder, unspecified; F32.9 - Major depressive disorder, single episode, unspecified Status: Acute Assessment and Plan: Discontinue Wellbutrin, start Zoloft and hydroxyzine, refer for outpatient psychology/psychiatry for further management care (4) GERD without esophagitis: Code(s): K21.9 - Gastro-esophageal reflux disease without esophagitis Status: Acute Assessment and Plan: continue PPI (5) Chiari malformation type I: Code(s): G93.5 - Compression of brain Status: Acute Assessment and Plan: unchanged Plan DVT prophylaxis with SCDs GI prophylaxis with PPI Code status full code Subjective Date/time seen: 02/14/22 07:43 Interval history: No overnight events noted. No chest pain or shortness of breath. No nausea, vomiting or diarrhea. No fevers or chills. Patient is admitting to significant anxiety and depression, states she no longer feels like any of her symptoms are from alcohol withdrawal. Review of Systems Review of Systems: 12 point review of systems was assessed and was negative except as noted in the HPI Exam Narrative: General: No acute distress, alert and oriented per baseline HEENT: Atraumatic, normocephalic, mucous membranes moist CV: Regular rate and rhythm, S1, S2 Lungs: Clear to auscultation bilaterally, no rales or crackles noted, no wheezes, good air entry Abdomen: Soft, nontender, nondistended Extremities: Normal to inspection Skin: No rashes noted, no lesions or wounds seen Psych: Euthymic, normal affect Objective Data Vital Signs Vital Signs: Vital Signs - 24 hr 02/13/22 08:00 02/13/22 10:09 02/13/22 09:00 Temperature Pulse Rate Pulse Rate [Monitor] 84 Respiratory Rate Blood Pressure Pulse Oximetry 99 Oxygen Delivery Room Air Room Air 02/13/22 12:00 02/13/22 16:00 02/13/22 16:00 Temperature 96.7 F L 96.9 F L Pulse Rate 77 85 Pulse Rate [Monitor] 85 Respiratory Rate 18 16 Blood Pressure 130/62 136/67 Pulse Oximetry 97 98 Oxygen Delivery 02/13/22 21:42 02/13/22 20:00 02/13/22 20:00 Temperature 96.8 F L Pulse Rate 97 Pulse Rate [Monitor] 85 Respiratory Rate 20 Blood Pressure 137/73 137/73 Pulse Oximetry 100 Oxygen Delivery Room Air 02/14/22 00:00 02/14/22 04:00 02/14/22 05:34 Temperature 97.6 F Pulse Rate 80 Pulse Rate [Monitor] 85 85 Respiratory Rate 14 Blood Pressure 107/55 L Pulse Oximetry 98 Oxygen Delivery Intake/Output Intake/Output: Intake & Output 02/11/22 02/12/22 02/13/22 02/14/22 23:59 23:59 23:59 23:59 Intake Total 2180 1650 800 Output Total 450 500 Balance 1730 1150 800 Meds/Results Medications: Active Medications Generic Name Dose Route Start Last Admin Trade Name Freq PRN Reason Stop Dose Admin Albuterol 2 puff 02/11/22 00:05 Albuterol Sulfate (*Sp) Aerosol 1 Puff INHALATION Q4H PRN Shortness Of Breath Or Wheezing Bupropion HCl 150 mg 02/11/22 09:00 02/13/22 09:01 Bupropion Hcl Xl (24 Hr) 150 Mg Tabcr PO 150 mg QAM NORA Administration Chlordiazepoxide HCl 50 mg 02/14/22 07:42 Chlordiazepoxide (*Crx) 25 Mg Capsule PO Q8H PRN Withdrawal Enoxaparin Sodium 40 mg 02/11/22 09:00 02/13/22 09:00 Enoxaparin 40 Mg/0.4 Ml Syringe SUB-Q Not Given DAILY NORA Gabapentin 600 mg 02/11/22 09:00 02/13/22 17:25 Gabapentin
[2022-02-14 08:24] LABS: Basophils Percent Auto 0.7 % (0.2-1.2); Eosinophils Absolute Auto 0.3 K/mm3 (0-0.3); Eosinophils Percent Auto 6.1 % (0-4.4); Hematocrit 34.3 % (37.0-47.0); Immature Granulocyte Absolute 0.01 K/mm3 (0.00-0.031); Immature Granulocyte Percent A 0.2 % (0-0.5); Lymphocytes Absolute Auto 1.28 K/mm3 (0.9-3.2); Lymphocytes Percent Auto 31.2 % (18.3-44.2); Mean Corpuscular HGB Conc 29.2 g/dl (32-36); Mean Corpuscular Hemoglobin 23.9 pg (26-34); Mean Corpuscular Volume 82.1 fl (80-100); Mean Platelet Volume 9.1 fl (7.4-10.4); Monocytes Absolute Auto 0.5 K/mm3 (0.1-0.6); Neutrophils Absolute Auto 2.1 K/mm3 (1.3-6.7); Neutrophils Percent Auto 50.8 % (45.5-73.1); Platelet Count Result 277 k/mm3 (150-375); Red Blood Count 4.18 M/mm3 (4.2-5.4); Red Cell Distribution Width 18.7 % (11.5-14.5); White Blood Count 4.1 K/mm3 (4.5-10.0)
[2022-02-14] MEDS: FLUTICASONE/SALMETEROL 45-21 MCG INHALER 1 PUFF 2 PUFF INHALATION ×2 (08:34→20:14)
[2022-02-14 08:35] LABS: Alanine Aminotransferase 28 U/L (6-35); Albumin Level 4.5 g/dL (3.5-5.1); Alkaline Phosphatase 64 U/L (38-126); Anion Gap 14 mmol/L (8-16); Aspartate Amino Transferase 29 U/L (14-36); Bilirubin,Total 0.3 mg/dL (0.2-1.3); Blood Urea Nitrogen 6 mg/dL (7-17); Calcium 8.9 mg/dL (8.4-10.2); Carbon Dioxide 26 mmol/L (22-30); Chloride 102 mmol/L (98-107); Estimated CRCL calculation 83 ml/min; Estimated Glomerular Filt Rate > 60; Glucose 93 mg/dL (65-110); Potassium 4.7 mmol/L (3.4-5.0); Sodium 142 mmol/L (137-145)
[2022-02-14] MEDS: PANTOPRAZOLE 40 MG TABLET PO (09:03)
[2022-02-14] MEDS: GABAPENTIN 300 MG CAPSULE 600 MG PO ×3 (09:03→17:00)
[2022-02-14] MEDS: buPROPion HCL XL (24 HR) 150 MG TABCR PO (09:03)
[2022-02-14] MEDS: IBUPROFEN 600 MG TABLET PO (09:08)
[2022-02-14 09:21] LABS: Anisocytosis 1+ (NORMAL); Hypochromasia 1+ (NORMAL); Platelet Estimate Adequate (Adequate)
[2022-02-14 10:58] LABS: Schistocytes None Seen (NORMAL)
[2022-02-14 12:08] LABS: Glucose Point of Care 147 mg/dl (65-105)
[2022-02-14] MEDS: hydrOXYzine HCL 25 MG TABLET PO ×2 (13:16→14:51)
[2022-02-14 17:56] LABS: Glucose Point of Care 110 mg/dl (65-105)
[2022-02-14] MEDS: NICOTINE (*PBKC) 21 MG PATCH 1 PATCH TRANSDERM (21:01)
[2022-02-14] MEDS: SERTRALINE HCL 50 MG TABLET PO (21:01)
[2022-02-14] MEDS: traZODone HCL 50 MG TABLET PO (21:01)
--- NOTE | 2022-02-14 23:03 | PC.NURSE ---
Pt in bed able to ambulate independently. Pt appears jittery and anxious. Pt participating and contributing to plan of care. Pt expresses no need and denies any pain at this time. Pt has q4 CIWA and q6 accuchecks. Will continue to monitor pt.
[2022-02-15 00:08] VITALS: BP 108/55; PULSE 96
[2022-02-15 00:30] LABS: Glucose Point of Care 107 mg/dl (65-105)
[2022-02-15] MEDS: hydrOXYzine HCL 25 MG TABLET 50 MG PO ×4 (00:32→14:25)
--- NOTE | 2022-02-15 05:57 | PC.NURSE ---
Pt was able to sleep tonight. Pt got one dose of atarax form me. Pt was pleasantly surprised that she slept until 0530. Pt has had no complaints and has expressed no needs at this time. Pt has participated and contributed to plan of care. Pt CIWA score was 0 overnight. Will continue to monitor pt.
[2022-02-15 06:00] VITALS: BP 102/50; PULSE 71; RESP 20; TEMP 36.6; O2SAT 99
[2022-02-15] MEDS: IBUPROFEN 600 MG TABLET PO (06:34)
[2022-02-15 06:40] LABS: Glucose Point of Care 90 mg/dl (65-105)
[2022-02-15 06:43] LABS: Basophils Percent Auto 0.5 % (0.2-1.2); Eosinophils Absolute Auto 0.2 K/mm3 (0-0.3); Eosinophils Percent Auto 5.4 % (0-4.4); Immature Granulocyte Absolute 0.01 K/mm3 (0.00-0.031); Immature Granulocyte Percent A 0.3 % (0-0.5); Lymphocytes Absolute Auto 1.43 K/mm3 (0.9-3.2); Mean Corpuscular Hemoglobin 24.2 pg (26-34); Mean Corpuscular Volume 80.6 fl (80-100); Monocytes Absolute Auto 0.4 K/mm3 (0.1-0.6); Monocytes Percent Auto 10.1 % (2.6-8.5); Neutrophils Absolute Auto 1.8 K/mm3 (1.3-6.7); Neutrophils Percent Auto 46.7 % (45.5-73.1); Platelet Count Result 273 k/mm3 (150-375); Red Blood Count 3.72 M/mm3 (4.2-5.4); Red Cell Distribution Width 18.8 % (11.5-14.5); White Blood Count 3.9 K/mm3 (4.5-10.0)
[2022-02-15 07:01] LABS: Alanine Aminotransferase 24 U/L (6-35); Alkaline Phosphatase 52 U/L (38-126); Anion Gap 14 mmol/L (8-16); Aspartate Amino Transferase 25 U/L (14-36); Bilirubin,Total 0.2 mg/dL (0.2-1.3); Blood Urea Nitrogen 9 mg/dL (7-17); Calcium 8.5 mg/dL (8.4-10.2); Carbon Dioxide 25 mmol/L (22-30); Chloride 104 mmol/L (98-107); Estimated CRCL calculation 83 ml/min; Estimated Glomerular Filt Rate > 60; Glucose 85 mg/dL (65-110); Potassium 3.6 mmol/L (3.4-5.0); Sodium 143 mmol/L (137-145)
[2022-02-15] MEDS: FLUTICASONE/SALMETEROL 45-21 MCG INHALER 1 PUFF 2 PUFF INHALATION (07:45)
[2022-02-15 07:46] VITALS: O2SAT 97
--- NOTE | 2022-02-15 08:14 | PM.DS ---
DS: Admitting Diagnosis Discharge Date February 15, 2022 Admitting Diagnosis Alcohol withdrawal DS: Discharge Diagnosis Discharge Diagnosis (1) Alcohol withdrawal: Code(s): F10.939 - Alcohol use, unspecified with withdrawal, unspecified Status: Acute Assessment and Plan: CIWA score down to 0, will decrease Librium and reassess, anticipate discharge tomorrow (2) Alcohol use disorder, moderate, dependence: Code(s): F10.20 - Alcohol dependence, uncomplicated Status: Acute Assessment and Plan: appreciate care coordination consultation (3) Anxiety and depression: Code(s): F41.9 - Anxiety disorder, unspecified; F32.9 - Major depressive disorder, single episode, unspecified Status: Acute Assessment and Plan: Discontinue Wellbutrin, start Zoloft and hydroxyzine, refer for outpatient psychology/psychiatry for further management care (4) GERD without esophagitis: Code(s): K21.9 - Gastro-esophageal reflux disease without esophagitis Status: Acute Assessment and Plan: continue PPI (5) Chiari malformation type I: Code(s): G93.5 - Compression of brain Status: Acute Assessment and Plan: unchanged Plan DVT prophylaxis with SCDs GI prophylaxis with PPI Code status full code DS: Summary Hospital Course Hospital Course: 41-year-old female with past medical history significant for alcohol dependence patient presents to the emergency room after drinking in daily for several weeks and had a break-up with her ex-boyfriend who is a recovering alcoholic.? Patient presents to the emergency room with tremors.? Denies any fevers, chills, rigors, no nausea, no vomiting.? She has frontal headache, no vision changes.? Preliminary workup has been essentially nonrevealing she had a high CIWA score. patient has been admitted for further evaluation, management and treatment. She was placed on Librium scheduled, CIWA came down nicely to 0. She then experienced significant anxiety. She was started on hydroxyzine 50 mg q.4 hours as needed as well as Zoloft 50 mg at bedtime to be titrated up to 100 mg over the next few weeks. She if Wellbutrin was discontinued as it tends to make anxiety worse. She is to follow up closely with her outpatient PCP, Psychology and Psychiatry for further care. Care coordination met with patient and discussed her discharge plans extensively and offered numerous resources for alcohol rehabilitation options and support. Time Spent with Patient Time attestation: Total time spent providing and/or coordinating discharge services: Exam Narrative: General: No acute distress, alert and oriented per baseline HEENT: Atraumatic, normocephalic, mucous membranes moist CV: Regular rate and rhythm, S1, S2 Lungs: Clear to auscultation bilaterally, no rales or crackles noted, no wheezes, good air entry Abdomen: Soft, nontender, nondistended Extremities: Normal to inspection Skin: No rashes noted, no lesions or wounds seen Psych: Euthymic, normal affect DS: Data Data Completed and Pending Labs on day of discharge: Labs from last 24 hours 02/15/22 02/15/22 02/15/22 06:37 05:29 05:29 WBC 3.9 L RBC 3.72 L Hgb 9.0 L Hct 30.0 L MCV 80.6 MCH 24.2 L MCHC 30.0 L RDW 18.8 H Plt Count 273 MPV 9.0 Immature Gran % (Auto) 0.3 Neut % (Auto) 46.7 Lymph % (Auto) 37.0 [place] % (Auto) 10.1 H Eos % (Auto) 5.4 H Baso % (Auto) 0.5 Lymph # (Auto) 1.43 [place] # (Auto) 0.4 Eos # (Auto) 0.2 Baso # (Auto) 0.0 Abs Immat Gran (auto) 0.01 Absolute Neuts (auto) 1.8 Absolute Nucleated RBC 0.0 Nucleated RBC % 0.0 Platelet Estimate Hypochromasia Anisocytosis Schistocytes Sodium 143 Potassium 3.6 Chloride 104 Carbon Dioxide 25 Anion Gap 14 BUN 9 Creatinine 0.70 Estim Creat Clear Calc 83 Estimated GFR > 60 Glucose 85 POC Capil
[2022-02-15] MEDS: GABAPENTIN 300 MG CAPSULE 600 MG PO ×2 (10:50→13:16)
[2022-02-15] MEDS: PANTOPRAZOLE 40 MG TABLET PO (10:50)
== END 2022-02-15 14:25 | disposition home or self-care (01) | DRG 775 ==
LOC: ANHED 18:53 → ANH3MEDSUR 22:27
PROVIDERS: Chiropractor; Emergency Medicine; Admitting Provider Internal Medicine; Emergency Provider Emergency Medicine; PCP Internal Medicine; Visit Provider Student in an Organized Health Care Education/Training Program
DX: F10.239 Alcohol dependence with withdrawal, unspecified (principal); G93.5 Compression of brain; Y90.8 Blood alcohol level of 240 mg/100 ml or more; F17.290 Nicotine dependence, other tobacco product, uncomplicated; E78.00 Pure hypercholesterolemia, unspecified; F41.9 Anxiety disorder, unspecified; F32.9 Major depressive disorder, single episode, unspecified; K21.9 Gastro-esophageal reflux disease without esophagitis; Z20.822 Contact with and (suspected) exposure to COVID-19; Z28.21 Immunization not carried out because of patient refusal; Z79.899 Other long term (current) drug therapy
CPT/HCPCS: 36415; 80053; 80307; 81001; 81025; 82948; 84443; 85025; 94640; 96374; 99285; A9270; J1650; J2060; J3411; J3475; J7030; U0003; U0005

== ENCOUNTER 2022-02-27 19:37 | Emergency (ER) | payer BC, SELFPAY ==
[2022-02-27 19:55] VITALS: BP 131/71; PULSE 85; RESP 16; TEMP 37.1; O2SAT 100
[2022-02-27 20:19] LABS: Basophils Absolute Auto 0.1 K/mm3 (0.0-0.1); Basophils Percent Auto 1.8 % (0.2-1.2); Eosinophils Absolute Auto 0.3 K/mm3 (0-0.3); Eosinophils Percent Auto 8.7 % (0-4.4); Hematocrit 32.3 % (37.0-47.0); Hemoglobin 9.9 g/dL (12.0-15.0); Lymphocytes Absolute Auto 1.79 K/mm3 (0.9-3.2); Lymphocytes Percent Auto 45.5 % (18.3-44.2); Mean Corpuscular HGB Conc 30.7 g/dl (32-36); Mean Corpuscular Volume 78.4 fl (80-100); Mean Platelet Volume 8.1 fl (7.4-10.4); Monocytes Absolute Auto 0.3 K/mm3 (0.1-0.6); Monocytes Percent Auto 8.1 % (2.6-8.5); Neutrophils Absolute Auto 1.4 K/mm3 (1.3-6.7); Neutrophils Percent Auto 35.9 % (45.5-73.1); Platelet Count Result 281 k/mm3 (150-375); Red Blood Count 4.12 M/mm3 (4.2-5.4); Red Cell Distribution Width 19.1 % (11.5-14.5); White Blood Count 3.9 K/mm3 (4.5-10.0)
[2022-02-27 20:39] LABS: Alanine Aminotransferase 25 U/L (6-35); Albumin Level 4.3 g/dL (3.5-5.1); Alkaline Phosphatase 72 U/L (38-126); Anion Gap 9 mmol/L (8-16); Aspartate Amino Transferase 37 U/L (14-36); Bilirubin,Total 0.2 mg/dL (0.2-1.3); Blood Urea Nitrogen 12 mg/dL (7-17); Calcium 8.1 mg/dL (8.4-10.2); Carbon Dioxide 26 mmol/L (22-30); Chloride 109 mmol/L (98-107); Estimated CRCL calculation 65 ml/min; Estimated Glomerular Filt Rate > 60; Glucose 90 mg/dL (65-110); Potassium 4.1 mmol/L (3.4-5.0); Sodium 144 mmol/L (137-145)
[2022-02-27 20:40] LABS: Ethanol 291 mg/dL (<10)
[2022-02-27 21:19] LABS: Appearance Urine Slightly Cloudy (Clear); Bilirubin Urine Negative (Negative); Blood Urine Negative (Negative); Color Urine Yellow (Yellow); Glucose Urine UA Negative (Negative); Ketones Urine Negative (Negative); Leukocyte Esterase Ur Trace LEU/UL (Negative); Nitrate Urine Negative (Negative); Protein Urine Negative (Negative); Specific Grav Ur 1.015 (1.001-1.035); Urobilinogen Urine 0.2 mg/dL (<2.0)
[2022-02-27 21:28] LABS: Bacteria Urine Trace /hpf; Mucus Urine Rare /lpf; RBC Urine 0-2 /hpf (0-2); Squamous Epithelial Cell Urine Moderate /hpf (Few); WBC Urine 0-3 /hpf
[2022-02-27 21:33] LABS: Add Urine Microscopic? YES
[2022-02-27 23:37] VITALS: BP 131/81; PULSE 82; RESP 21; O2SAT 97
[2022-02-27 23:45] VITALS: BP 117/56; PULSE 86; RESP 14; O2SAT 99
[2022-02-28 00:30] VITALS: BP 124/81; PULSE 88; RESP 19; O2SAT 96
[2022-02-28 01:15] VITALS: BP 109/64; PULSE 79; RESP 19; O2SAT 96
--- NOTE | 2022-02-28 01:17 | ED.GENADULT ---
HPI - General Adult General Chief complaint: Alcohol Stated complaint: detox Time Seen by Provider: 02/27/22 23:02 History of Present Illness HPI narrative: This is a 41-year-old female with history of alcohol use disorder presenting to ED for detox. Patient was admitted the hospital 2 weeks ago and alcohol withdrawal. She was then discharged home where she has been with her family. She has been drinking heavily during that time. Her last drink was earlier today around 5:00 p.m.. The patient's family is having difficulty care with her due to her alcohol use. At this time the patient is complaining of some anxiety but has no other physical complaints. Related Data Home Medications Medication Instructions Recorded Confirmed esomeprazole magnesium 20 mg 20 mg PO DAILY 06/19/21 02/20/22 capsule,delayed release (Nexium) Allergies Allergy/AdvReac Type Severity Reaction Status Date / Time ciprofloxacin Allergy Mild NAUSEA Verified 02/20/22 14:46 Sulfa (Sulfonamide Allergy Mild Vomiting Verified 02/20/22 14:46 Antibiotics) Review of Systems Review of Systems: CONSTITUTIONAL: Denies night sweats. EYES: No eye pain ENT: Denies rhinorrhea CARDIOVASCULAR: Denies palpitations RESPIRATORY: Denies hemoptysis GASTROINTESTINAL: Denies hematemesis GENITOURINARY: Denies hematuria. SKIN: Denies rash MUSCULOSKELETAL: Denies myalgia. NEUROLOGIC: Denies weakness. PSYCHIATRIC: Denies delusions PMFSH Past Medical History Medical History Alcohol use disorder, moderate, dependence Anemia Anxiety and depression Chiari malformation type I High cholesterol Screening for metabolic disorder Family History Family History Father Diabetes mellitus Mother Hypertension Breast cancer Social History Social History Smoking status: Current every day smoker Tobacco type: e-cigarettes/vaping Alcohol intake: current Drinks per week: 7 Substance use: never Spiritual care concerns: No Exam Narrative: APPEARANCE: No apparent distress.Patient is sitting in the bed kicking her leg. no tremor at rest Head: atraumatic. No tongue fasciculations EYES: EOMI, NOSE: Atraumatic NECK: Trachea midline RESPIRATORY: No increased rate of breathing CARDIOVASCULAR: RRR, ABDOMINAL: Non-distended MUSCULOSKELETAl: No obvious deformities NEURO: Alert. Moving 4/4 extremities SKIN:: Warm, dry. Normal color PSYCHIATRIC: Normal affect Course Vital Signs Vital signs: Vital Signs Temperature 98.7 F 02/27/22 19:55 Pulse Rate 85 02/27/22 19:55 Respiratory Rate 16 02/27/22 19:55 Blood Pressure 131/71 02/27/22 19:55 Pulse Oximetry 100 02/27/22 19:55 Oxygen Delivery Room Air 02/27/22 19:55 Temperature 98.7 F 02/27/22 19:55 Pulse Rate 82 02/27/22 23:37 Respiratory Rate 21 H 02/27/22 23:37 Blood Pressure 131/81 02/27/22 23:37 Pulse Oximetry 97 02/27/22 23:37 Oxygen Delivery Room Air 02/27/22 19:55 Medical Decision Making MDM Narrative Medical decision making narrative: This is a 41-year-old female history of alcohol use disorder. the patient is not actively in withdrawal at this time. She was admitted 2 weeks ago and went without drinking several days ago without going through withdrawal. Patient's family will be given resources for alcohol detox programs. She will be discharged into their care. They have been instructed to bring her back if she develops tremors, diaphoresis, nausea or vomiting or other signs of withdrawal. Vital Signs Vital Signs: Vital Signs Temperature 98.7 F 02/27/22 19:55 Pulse Rate 85 02/27/22 19:55 Respiratory Rate 16 02/27/22 19:55 Blood Pressure 131/71 02/27/22 19:55 Pulse Oximetry 100 02/27/22 19:55 Oxygen Delivery Room Air 02/27/22 19:55 Temperature 98.7
== END 2022-02-28 01:20 | disposition home or self-care (01) ==
PROVIDERS: Emergency Medicine; Emergency Provider Emergency Medicine; PCP Internal Medicine
DX: F10.10 Alcohol abuse, uncomplicated (principal); Y90.8 Blood alcohol level of 240 mg/100 ml or more; D64.9 Anemia, unspecified; F41.9 Anxiety disorder, unspecified; F32.9 Major depressive disorder, single episode, unspecified
CPT/HCPCS: 36415; 80053; 80307; 81001; 85025; 99283

== ENCOUNTER 2022-12-19 11:32 | Outpatient (CLI) | payer OTHER, SELFPAY ==
--- NOTE | ~2022-12-19 | XR_ITS ---
Cervical Spine: AP, lateral, open-mouth views Clinical History: Pain Findings: There is straightening of the normal cervical lordosis. The vertebral bodies and posterior elements appear intact. There is moderate degenerative disc narrowing at C5-C6. Pre-vertebral soft t issues are unremarkable. Impression: Straightening of the normal cervical lordosis. Moderate degenerative disc narrowing at C5-C6. Reviewed, dictated and finalized at location . Impression: Straightening of the normal cervical lordosis. Moderate degenerative disc narrowing at C5-C6.
--- NOTE | ~2022-12-19 | XR_ITS ---
Lumbosacral Spine: AP and lateral views Clinical History: Pain Findings: The normal lordotic curve is maintained. The vertebral bodies and posterior elements are i ntact. There is advanced degenerative disc narrowing at L5-S1. The sacroiliac joints are normally ou tlined. Impression: Advanced degenerative disc narrowing at L5-S1. Reviewed, dictated and finalized at [facility]. Impression: Advanced degenerative disc narrowing at L5-S1.
[2022-12-19 12:24] LABS: Basophils Absolute Auto 0.1 K/mm3 (0.0-0.1); Basophils Percent Auto 1.2 % (0.2-1.2); Eosinophils Absolute Auto 0.1 K/mm3 (0-0.3); Eosinophils Percent Auto 2.9 % (0-4.4); Hematocrit 35.5 % (37.0-47.0); Hemoglobin 11.2 g/dL (12.0-15.0); Immature Granulocyte Absolute 0.01 K/mm3 (0.00-0.031); Immature Granulocyte Percent A 0.2 % (0-0.5); Lymphocytes Absolute Auto 1.87 K/mm3 (0.9-3.2); Lymphocytes Percent Auto 38.2 % (18.3-44.2); Mean Corpuscular HGB Conc 31.5 g/dl (32-36); Mean Corpuscular Hemoglobin 24.7 pg (26-34); Mean Corpuscular Volume 78.4 fl (80-100); Mean Platelet Volume 9.1 fl (7.4-10.4); Monocytes Absolute Auto 0.4 K/mm3 (0.1-0.6); Monocytes Percent Auto 7.1 % (2.6-8.5); Neutrophils Absolute Auto 2.5 K/mm3 (1.3-6.7); Neutrophils Percent Auto 50.4 % (45.5-73.1); Platelet Count Result 331 k/mm3 (150-375); Red Blood Count 4.53 M/mm3 (4.2-5.4); Red Cell Distribution Width 16.7 % (11.5-14.5); White Blood Count 4.9 K/mm3 (4.5-10.0)
[2022-12-19 12:46] LABS: Cholesterol 288 mg/dL (0-200); HDL Direct 53 mg/dL; Triglycerides 122 mg/dL (<150)
[2022-12-19 12:50] LABS: Alanine Aminotransferase 17 U/L (6-35); Albumin Level 4.7 g/dL (3.5-5.1); Alkaline Phosphatase 63 U/L (38-126); Anion Gap 9 mmol/L (8-16); Aspartate Amino Transferase 24 U/L (14-36); Bilirubin,Total 0.3 mg/dL (0.2-1.3); Blood Urea Nitrogen 13 mg/dL (7-17); Calcium 9.5 mg/dL (8.4-10.2); Carbon Dioxide 23 mmol/L (22-30); Chloride 106 mmol/L (98-107); Estimated Glomerular Filt Rate > 60; Glucose 100 mg/dL (65-110); Sodium 138 mmol/L (137-145)
[2022-12-19 12:57] LABS: LDL Cholesterol Direct 172 mg/dL
[2022-12-19 13:00] LABS: Vitamin D 25 Hydroxy 66.7 ng/mL
[2022-12-19 13:19] LABS: Ferritin 5.57 ng/mL (6.24-137)
[2022-12-19 13:54] LABS: Folic Acid 12.5 ng/mL (2.76->20)
[2022-12-22 09:41] LABS: Immunoglobulin A 280 mg/dL (47-310); TTG IGA AB <1.0 U/mL (<15.0)
== END 2022-12-19 11:33 | disposition home or self-care (01) ==
PROVIDERS: PCP Internal Medicine; Visit Provider Nurse Practitioner
DX: D64.9 Anemia, unspecified (principal); E78.00 Pure hypercholesterolemia, unspecified; G93.5 Compression of brain; E55.9 Vitamin D deficiency, unspecified; M51.37 Other intervertebral disc degeneration, lumbosacral region; M50.322 Other cervical disc degeneration at C5-C6 level; M40.40 Postural lordosis, site unspecified; Z13.228 Encounter for screening for other metabolic disorders
CPT/HCPCS: 36415; 72040; 72100; 80053; 80061; 82306; 82607; 82728; 82746; 82784; 85025; 86364

== ENCOUNTER 2023-01-23 10:00 | Outpatient (RCR) | payer OTHER, SELFPAY ==
--- NOTE | 2022-12-26 11:08 | OPREHPOC ---
Outpatient Therapy Plan of Care This is a Multidisciplinary Plan of Care that may contain components documented by all disciplines (PT, OT, and ST.) PT Problem 1 PT Problem #1 Knowledge Deficit PT Goal 1 Goal Pt to be IND with issued HEP Target Visit 8 PT Problem 2 PT Problem #2 Pain PT Goal 1 Goal Pt to report back pain no greater than 3/10 in the last week Target Visit 8 PT Goal 2 Goal Pt to report 75% improvement in overall symptoms Target Visit 8 PT Problem 3 PT Problem #3 Pain PT Goal 1 Goal Pt to be able to stand for 1 hour without an increase in back pain Target Visit 8 PT Problem 4 PT Problem #4 Impaired Strength PT Goal 1 Goal Pt to be able to lift and carry 20lb from ground level without deviations Target Visit 8 PT Goal 2 Goal Pt to demonstrate a hip hinge to be able to change her grandchild's diaper without an increase in pain Target Visit 8
--- NOTE | 2022-12-26 11:09 | PTOPEVAL1 ---
Assessment and note entered by Dov Zamora, PT, DPT Evaluation Information Assessment Status Evaluation Diagnosis low back pain Onset 1 year Subjective Information Pt reports having a Chiari malformation so she has a long history of neck pain and headaches. She reports a newer history of back pain that has increased in the last year, she states her back pain is consistent and persistent all day long. She states even hinging forward slightly without any added weight will increase her back pain. She feels like the pain has increased to the pont that it is affecting her quality of life. She reports a deep bone pain that she has always attributed to her Chiari but now thinks it might be d/t her back . 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 Reported Pain Level Pain Score 4: Self Report Assessment PT Clinical Summary Clement presents to therapy today for her initial evaluation with a diagnosis of low back pain. Today she demonstrates hypermobility of her spine and LEs. She demonstrates decreased core strength during functional movements and demonstrates an anteriorly shifted pelvis in standing likely contributing to her pain. Skilled therapy services are indicated to improve core strength, improve body mechanics, and to return to PLOF without limitations. Plan of Care Interventions Electrical Stimulation,Gait Training,Hot Pack/Cold Pack,Manual Therapy,Neuro Re-education,Patient/ Caregiver Educati,Therapeutic Activities, Therapeutic Exercise PT Services Indicated Yes Treatment Frequency and 2x/wk for 8 visits Duration These treatments will address the objective and functional deficits as defined above. The patient will be advanced safely and appropriately in order for the patient to progress towards his/her prior level of function. Additional exercises will be introduced and as well as a comprehensive home exercise program upon discharge, if needed, ?to ensure carryover of functional gains achieved in the clinic. This treatment plan has been reviewed and agreement upon by the patient.
--- NOTE | 2023-01-02 10:32 | PCPTNOTE ---
Patient did not show up for scheduled appointment this date. Called and spoke with pt, she states there was a miscommunication with when her appointments started.
--- NOTE | 2023-01-18 08:57 | PCPTNOTE ---
Patient reports she got called into work and canceled appointment for this date.
--- NOTE | 2023-01-23 12:36 | PTOPPROG ---
Assessment and note entered by Dov Zamora, PT, DPT Evaluation Information Assessment Status Progress Diagnosis low back pain Onset 1 year Subjective Information Pt states overall she is having the same level of back pain, she states it is still waking her up at night. She states her day to day activates are hindered as well, she states she is leery to lift even a laundry basket. Pt states her postural awareness has improved and even when she incorporates this into her day her pain does not change. Assessment PT Clinical Summary Clement presents to therapy today for her progress report following 7 visits of skilled therapy to treat her low back pain. Today she demonstrates improved body awareness and stability with functional movements but still requires cues for this. She demonstrates improved core stability when that is her primary focus as less when she has distractions. Pt elected to continue her HEP from home and continue focusing on body mechanics. She plans to follow up in a month. Plan of Care Interventions Electrical Stimulation,Gait Training,Hot Pack/Cold Pack,Manual Therapy,Neuro Re-education,Patient/ Caregiver Educati,Therapeutic Activities, Therapeutic Exercise PT Services Indicated Yes Treatment Frequency and follow up in 1 month if needed Duration These treatments will address the objective and functional deficits as defined above. The patient will be advanced safely and appropriately in order for the patient to progress towards his/her prior level of function. Additional exercises will be introduced and as well as a comprehensive home exercise program upon discharge, if needed, ?to ensure carryover of functional gains achieved in the clinic. This treatment plan has been reviewed and agreement upon by the patient.
--- NOTE | 2023-03-04 10:00 | PTOPDC ---
Assessment and note entered by Dov Zamora, PT, DPT Evaluation Information Assessment Status Discharge - Pt Not Present Diagnosis low back pain Onset 1 year Subjective Information Called pt to follow up. She states she is still doing initial better than when she started therapy but is having some residual pain. States she called PCP about getting MRI done, she has not heard back from them yet. Assessment PT Clinical Summary Clement completed 7 visits of skilled therapy from 12/26/22 to 01/23/23. She will be discharged at this time per request.
== END 2023-03-04 10:35 | disposition home or self-care (01) ==
LOC: ANHGOSHPT 10:00
PROVIDERS: PCP Internal Medicine; Visit Provider Nurse Practitioner
DX: M54.50 Low back pain, unspecified (principal)
CPT/HCPCS: 97110; 97112; 97140; 97161; 97530; 99199

== ENCOUNTER 2023-06-08 21:15 | Emergency (ER) | payer OTHER, SELFPAY ==
[2023-06-08] VITALS (15 sets, daily range): BP systolic 96–133; BP diastolic 50–101; PULSE 80–103; RESP 15–28; O2SAT 93–97
--- NOTE | 2023-06-08 21:55 | ECG_ITS ---
Measurements Intervals [place] Rate: 86 P: 65 [place]: 137 QRS: 65 QRSD: 86 T: 33 QT: 362 QTc: 434 Interpretive Statements SINUS RHYTHM MINIMAL Q WAVES- INF/LAT LEADS BORDERLINE ECG COMPARED TO ECG 09/14/2021 13:48:38 NO SIGNIFICANT CHANGES Electronically Signed On 06-09-2023 7:03:11 SOFTWARE INTEGRATION DEVELOPER by Truman Manzo D.O.
[2023-06-08] MEDS: SODIUM CHLORIDE 0.9% IV 1,000 ML 999 ML IV CONT ×2 (22:00→23:59)
[2023-06-08] MEDS: LORazepam INJ (*CRX) 2 MG/ML VIAL 1 MG IV PUSH (22:00)
[2023-06-08 22:08] LABS: Basophils Absolute Auto 0.1 K/mm3 (0.0-0.1); Basophils Percent Auto 0.8 % (0.2-1.2); Eosinophils Absolute Auto 0.3 K/mm3 (0-0.3); Eosinophils Percent Auto 2.1 % (0-4.4); Hematocrit 38.5 % (37.0-47.0); Hemoglobin 11.8 g/dL (12.0-15.0); Immature Granulocyte Absolute 0.04 K/mm3 (0.00-0.031); Immature Granulocyte Percent A 0.3 % (0-0.5); Lymphocytes Absolute Auto 2.56 K/mm3 (0.9-3.2); Mean Corpuscular HGB Conc 30.6 g/dl (32-36); Mean Corpuscular Hemoglobin 23.1 pg (26-34); Mean Corpuscular Volume 75.5 fl (80-100); Mean Platelet Volume 8.2 fl (7.4-10.4); Monocytes Absolute Auto 0.8 K/mm3 (0.1-0.6); Monocytes Percent Auto 6.1 % (2.6-8.5); Neutrophils Absolute Auto 9.6 K/mm3 (1.3-6.7); Neutrophils Percent Auto 71.7 % (45.5-73.1); Platelet Count Result 383 k/mm3 (150-375); Red Cell Distribution Width 18.1 % (11.5-14.5); White Blood Count 13.4 K/mm3 (4.5-10.0)
[2023-06-08] MEDS: THIAMINE 500 MG/NS 100 ML 500 MG/100 ML BAG 200 MG IVPB (22:11)
[2023-06-08 22:26] LABS: Alanine Aminotransferase 23 U/L (6-35); Albumin Level 4.9 g/dL (3.5-5.1); Alkaline Phosphatase 80 U/L (38-126); Anion Gap 12 mmol/L (8-16); Aspartate Amino Transferase 47 U/L (14-36); Bilirubin,Total 0.5 mg/dL (0.2-1.3); Blood Urea Nitrogen 8 mg/dL (7-17); Calcium 9.2 mg/dL (8.4-10.2); Carbon Dioxide 24 mmol/L (22-30); Chloride 105 mmol/L (98-107); Estimated CRCL calculation 84 ml/min; Estimated Glomerular Filt Rate > 60; Glucose 82 mg/dL (65-110); Potassium 4.7 mmol/L (3.4-5.0); Sodium 141 mmol/L (137-145)
--- NOTE | 2023-06-08 22:50 | PC.NURSE ---
Patient resting comfortably on stretcher with eyes closed, VSS, with mother at bedside.
[2023-06-08 22:51] LABS: Thyroid Stimulating Hormone 0.737 uIU/mL (0.465-4.680)
[2023-06-08 22:55] LABS: Influenza A QL RT-PCR Negative (Negative); Influenza B QL RT-PCR Negative (Negative); RSV RNA, RT-PCR Negative (Negative); SARS-CoV-2 RNA PCR Negative (Negative)
[2023-06-08 23:12] LABS: Acetaminophen 13 ug/mL (10-30); Ethanol 294 mg/dL (<10); Salicylate < 1.0 mg/dL (2-20)
[2023-06-09] VITALS (35 sets, daily range): BP systolic 90–137; BP diastolic 46–70; PULSE 73–107; RESP 12–21; TEMP 36.7; O2SAT 93–100
[2023-06-09] MEDS: SODIUM CHLORIDE 0.9% IV 1,000 ML 150 ML IV CONT (02:03)
--- NOTE | 2023-06-09 02:49 | ED.GENADULT ---
HPI - General Adult General Chief complaint: Alcohol <Jake Martinez MD - Last Filed: 06/09/23 19:31> Stated complaint: etoh withdrawal <Jake Martinez MD - Last Filed: 06/09/23 19:31> Time Seen by Provider: 06/08/23 21:47 <Jake Martinez MD - Last Filed: 06/09/23 19:31> History of Present Illness HPI narrative: Patient is a 42-year-old female who presents emergency department with chief complaint of possible alcohol withdrawal. Patient reports that she started drinking again a few days ago although the family reports has probably been the last month patient has prior history of alcohol abuse and has been sober for approximately 1 year the patient states that she last drank a few hours ago reports that she feels agitated and as though she may be going through withdrawal. The patient reports no prior history of seizures for complicated withdrawal. The patient reports that she wishes that she were not alive <Jake Martinez MD - Last Filed: 06/09/23 19:31> Related Data Home medications: Home Medications Medication Instructions Recorded Confirmed esomeprazole magnesium 20 mg 20 mg PO DAILY 06/19/21 12/13/22 capsule,delayed release (Nexium) multivitamin 1 tablet PO DAILY 04/12/22 12/13/22 vitamin B complex (B 1 tablet PO DAILY 04/12/22 12/13/22 Complex-Vitamin B12 tablet) <Jake Martinez MD - Last Filed: 06/09/23 19:31> Allergies/adverse reactions: Allergies Allergy/AdvReac Type Severity Reaction Status Date / Time ciprofloxacin Allergy Mild NAUSEA Verified 06/08/23 21:55 Sulfa (Sulfonamide Allergy Mild Vomiting Verified 06/08/23 21:55 Antibiotics) <Jake Martinez MD - Last Filed: 06/09/23 19:31> Review of Systems Review of Systems: A 10 system review of systems was completed on the patient and is negative except for what is stated in the HPI. Nursing and ancillary documentation was reviewed. <Jake Martinez MD - Last Filed: 06/09/23 19:31> [facility] Past Medical History Medical History: Medical History Alcohol use disorder, moderate, dependence Anemia Anxiety and depression Asthma Chiari malformation type I High cholesterol Major depressive disorder, recurrent Screening for metabolic disorder <Jake Martinez MD - Last Filed: 06/09/23 19:31> Family History Family History: Family History Father Diabetes mellitus Mother Hypertension Breast cancer <Jake Martinez MD - Last Filed: 06/09/23 19:31> Social History Social History: Social History Smoking status: Current every day smoker Tobacco type: e-cigarettes/vaping Alcohol intake: current Drinks per week: 7 Substance use: never Substance use type: does not use Lack of Transportation: No Lack of Food: Never True Current Housing: I Have Housing Concerned About Future Housing: No Difficulty Paying Gas/Electric Bills: No Difficulty Paying for Meds: No Currently Unemployed: No Education: Associate Degree Difficulty w/ Childcare or Family Care: No Spiritual care concerns: No <Jake Martinez MD - Last Filed: 06/09/23 19:31> Exam Narrative: GENERAL: Well-appearing, well-nourished, and in no acute distress. HEAD: Normocephalic, atraumatic. EYES: PERRLA and EOMI. ENT: Nares clear, no rhinorrhea or epistaxis. Mucous membranes moist. NECK: Supple. CHEST: Clear to auscultation. No respiratory distress. HEART: Regular rate and rhythm. No murmur heard. Normal peripheral pulses. ABDOMEN: Soft, nontender, nondistended, normal active bowel sounds. EXTREMITIES: Normal range of motion. No edema. SKIN: Warm, dry, no rash. NEURO: No focal deficits. Alert and oriented x3. PSYCH: Normal
--- NOTE | 2023-06-09 03:54 | PC.NURSE ---
This nurse went in to check on patient and her mother. Bedside commode brought into room for patient to provide a urine specimen. Patient fidgeting and restless in the bed when this nurse woke patient. Patient c/o continued headache, nausea, restless feeling and just not well. Patient informed of need for urine specimen. Patient verbalized understanding of need for sample. ERP notified of patients headache and nausea ans well as restless feeling, orders being placed. Patients mother also given recliner to rest in as she remains at bedside for patient. Patients mother also given pillow and blanket.
[2023-06-09] MEDS: ONDANSETRON INJ 4 MG/2 ML VIAL IV PUSH (04:00)
[2023-06-09] MEDS: ACETAMINOPHEN 500 MG TABLET 1000 MG PO (04:00)
[2023-06-09 04:14] LABS: Appearance Urine Cloudy (Clear); Bacteria Urine 1+ /hpf; Bilirubin Urine Negative (Negative); Blood Urine Negative (Negative); Color Urine Yellow (Yellow); Glucose Urine UA Negative (Negative); Ketones Urine 1+ mg/dL (Negative); Leukocyte Esterase Ur Trace LEU/UL (Negative); Nitrate Urine Negative (Negative); Non Pathogenic Casts 0-2; Protein Urine Trace mg/dL (Negative); Specific Grav Ur 1.015 (1.001-1.035); Squamous Epithelial Cell Urine Few /hpf (Few); Urobilinogen Urine 0.2 mg/dL (<2.0); pH Urine 5.5 (5.0-9.0)
[2023-06-09 04:15] LABS: Add Urine Microscopic? YES
[2023-06-09 04:26] LABS: Amphetamine Screen Urine Negative (Negative); Barbiturate Screen Urine Negative (Negative); Benzodiazepines Screen Urine Positive (Negative); Cannabinoid Screen Urine Negative (Negative); Cocaine Screen Urine Negative (Negative); Methadone Screen Urine Negative (Negative); Opiate Screen Urine Negative (Negative); Phencyclidine Screen Urine Negative (Negative)
[2023-06-09] MEDS: LORazepam INJ (*CRX) 2 MG/ML VIAL 1 MG IV PUSH (04:34)
--- NOTE | 2023-06-09 04:38 | PC.NURSE ---
Patients mother comes to desk to state patient is getting more restless and anxious and is requesting more medication to keep her calm. ERP notified and orders received. Patient given another dose of ativan IVP. Patient also given ice water and updated on place of care. Patient verbalized understanding.
[2023-06-09 07:40] LABS: Ethanol 35 mg/dL (<10)
--- NOTE | 2023-06-09 08:44 | PC.NURSE ---
[facility] contacted to come and evaluate pt, but pt does not meet Crisis criteria. enrollment management coordinator contacted, resources for help provided to the pt.
== END 2023-06-09 10:20 | disposition home or self-care (01) ==
PROVIDERS: Emergency Medicine; Emergency Provider Emergency Medicine; PCP Internal Medicine
DX: F10.229 Alcohol dependence with intoxication, unspecified (principal); Y90.8 Blood alcohol level of 240 mg/100 ml or more; Z11.52 Encounter for screening for COVID-19; J45.909 Unspecified asthma, uncomplicated; E78.00 Pure hypercholesterolemia, unspecified; D64.9 Anemia, unspecified; G93.5 Compression of brain; F17.290 Nicotine dependence, other tobacco product, uncomplicated; F33.9 Major depressive disorder, recurrent, unspecified; F41.9 Anxiety disorder, unspecified
CPT/HCPCS: 36415; 80053; 80307; 81001; 81025; 84443; 85025; 87086; 87088; 87637; 93005; 96361; 96365; 96374; 96375; 99284; A9270; J2060; J2405; J3411; J7030

== ENCOUNTER 2023-06-10 00:12 | Emergency (ER) | payer OTHER, SELFPAY ==
[2023-06-10] VITALS (22 sets, daily range): BP systolic 109–128; BP diastolic 63–86; PULSE 68–94; RESP 14–19; TEMP 36.9; O2SAT 91–100
--- NOTE | 2023-06-10 00:39 | ED.GENADULT ---
HPI - General Adult General Chief complaint: Alcohol Stated complaint: etoh Time Seen by Provider: 06/10/23 00:14 Source: patient Mode of arrival: ambulatory Limitations: no limitations History of Present Illness HPI narrative: This is a 42-year-old female with history of chronic alcohol abuse presents to the ED via EMS for chief complaint of alcohol intoxication. According to EMS family supposedly found her altered at home. They are concerned because she is drinking again. She had been sober for over a year and relapsed yesterday. Patient reports that she drank around 8-10 vodka drinks today. Her last drink was 2 hours ago. Denies anxiety, tremors, syncope, fevers, chills. Denies SI, HI. Currently asymptomatic States she was going to go [facility]hab. Related Data Home Medications Medication Instructions Recorded Confirmed esomeprazole magnesium 20 mg 20 mg PO DAILY 06/19/21 12/13/22 capsule,delayed release (Nexium) multivitamin 1 tablet PO DAILY 04/12/22 12/13/22 vitamin B complex (B 1 tablet PO DAILY 04/12/22 12/13/22 Complex-Vitamin B12 tablet) Allergies Allergy/AdvReac Type Severity Reaction Status Date / Time ciprofloxacin Allergy Mild NAUSEA Verified 06/08/23 21:55 Sulfa (Sulfonamide Allergy Mild Vomiting Verified 06/08/23 21:55 Antibiotics) Review of Systems Review of Systems: All systems as dictated in [facility] Past Medical History Medical History Alcohol use disorder, moderate, dependence Anemia Anxiety and depression Asthma Chiari malformation type I High cholesterol Major depressive disorder, recurrent Screening for metabolic disorder Family History Family History Father Diabetes mellitus Mother Hypertension Breast cancer Social History Social History Smoking status: Current every day smoker Tobacco type: e-cigarettes/vaping Alcohol intake: current Drinks per week: 7 Substance use: never Substance use type: does not use Lack of Transportation: No Lack of Food: Never True Current Housing: I Have Housing Concerned About Future Housing: No Difficulty Paying Gas/Electric Bills: No Difficulty Paying for Meds: No Currently Unemployed: No Education: Associate Degree Difficulty w/ Childcare or Family Care: No Spiritual care concerns: No Exam Narrative: GENERAL: Well-appearing, well-nourished, and in no acute distress. HEAD: Normocephalic, atraumatic. EYES: PERRLA and EOMI. ENT: Nares clear, no rhinorrhea or epistaxis. Mucous membranes moist. Oropharynx without tonsillar hypertrophy exudate or other lesions. NECK: Supple. No adenopathy or masses. CHEST: No respiratory distress. Clear to auscultation. No wheezes rales or rhonchi HEART: Regular rate and rhythm. No murmur heard. Normal peripheral pulses. ABDOMEN: Soft, nontender, nondistended, normal active bowel sounds. MSK: Normal range of motion. No edema. SKIN: Warm, dry, no rash. NEURO: Alert and oriented x3. No focal deficits. PSYCH: Normal mood and affect. Course Vital Signs Vital signs: Vital Signs Temperature 98.4 F 06/10/23 00:13 Pulse Rate 82 06/10/23 00:13 Respiratory Rate 15 06/10/23 00:13 Blood Pressure 128/86 06/10/23 00:13 Pulse Oximetry 100 06/10/23 00:13 Oxygen Delivery Room Air 06/10/23 00:13 Temperature 98.4 F 06/10/23 00:13 Pulse Rate 79 06/10/23 00:31 Respiratory Rate 16 06/10/23 00:31 Blood Pressure 126/76 06/10/23 00:31 Pulse Oximetry 96 06/10/23 00:31 Oxygen Delivery Room Air 06/10/23 00:13 Medical Decision Making [facility] Narrative Medical decision making narrative: This is a 42-year-old female who presents to the ED with chief complaint alcohol intoxication. Her parents called EMS nabeel [email or web address]
[2023-06-10 00:42] LABS: Basophils Absolute Auto 0.1 K/mm3 (0.0-0.1); Basophils Percent Auto 1.2 % (0.2-1.2); Eosinophils Absolute Auto 0.2 K/mm3 (0-0.3); Eosinophils Percent Auto 2.7 % (0-4.4); Hemoglobin 9.8 g/dL (12.0-15.0); Immature Granulocyte Absolute 0.01 K/mm3 (0.00-0.031); Immature Granulocyte Percent A 0.1 % (0-0.5); Lymphocytes Absolute Auto 1.96 K/mm3 (0.9-3.2); Lymphocytes Percent Auto 29.2 % (18.3-44.2); Mean Corpuscular HGB Conc 30.6 g/dl (32-36); Mean Corpuscular Hemoglobin 23.6 pg (26-34); Mean Corpuscular Volume 77.1 fl (80-100); Mean Platelet Volume 8.6 fl (7.4-10.4); Monocytes Absolute Auto 0.5 K/mm3 (0.1-0.6); Monocytes Percent Auto 7.7 % (2.6-8.5); Neutrophils Percent Auto 59.1 % (45.5-73.1); Platelet Count Result 288 k/mm3 (150-375); Red Blood Count 4.15 M/mm3 (4.2-5.4); White Blood Count 6.7 K/mm3 (4.5-10.0)
[2023-06-10 00:52] LABS: Alanine Aminotransferase 20 U/L (6-35); Alkaline Phosphatase 74 U/L (38-126); Anion Gap 10 mmol/L (8-16); Aspartate Amino Transferase 35 U/L (14-36); Bilirubin,Total 0.4 mg/dL (0.2-1.3); Blood Urea Nitrogen 7 mg/dL (7-17); Calcium 8.6 mg/dL (8.4-10.2); Carbon Dioxide 24 mmol/L (22-30); Chloride 108 mmol/L (98-107); Estimated CRCL calculation 84 ml/min; Estimated Glomerular Filt Rate > 60; Glucose 74 mg/dL (65-110); Potassium 3.9 mmol/L (3.4-5.0); Sodium 142 mmol/L (137-145)
[2023-06-10 00:56] LABS: Ethanol 154 mg/dL (<10)
[2023-06-10] MEDS: chlordiazePOXIDE (*CRX) 25 MG CAPSULE 50 MG PO (01:24)
== END 2023-06-10 02:55 | disposition home or self-care (01) ==
PROVIDERS: Emergency Provider Physician Assistant; PCP Internal Medicine
DX: F10.229 Alcohol dependence with intoxication, unspecified (principal); Y90.6 Blood alcohol level of 120-199 mg/100 ml; D64.9 Anemia, unspecified; J45.909 Unspecified asthma, uncomplicated; G93.5 Compression of brain; E78.00 Pure hypercholesterolemia, unspecified; F33.9 Major depressive disorder, recurrent, unspecified; F41.9 Anxiety disorder, unspecified; F17.290 Nicotine dependence, other tobacco product, uncomplicated
CPT/HCPCS: 36415; 80053; 80307; 85025; 99283; A9270